=== PATIENT | female | born 1990 | race Caucasian/White ===

== ENCOUNTER → 2018-09-08 | Outpatient (CLI) | payer MEDICAID ==
[2018-09-08 10:58] LABS: Basophils % (A) 0 %; Eosinophils # (A) 0.1 k/uL (0-0.7); Eosinophils % (A) 1 %; HCT 45.2 % (34.0-46.0); HGB 14.9 gm/dL (11.4-16.0); Lymphocytes # (A) 2.1 k/uL (1.0-4.8); Lymphocytes % (A) 24 %; MCH 31.6 pg (25.0-35.0); MCHC 32.9 g/dL (31.0-37.0); MCV 96.1 fL (80.0-100.0); Mean Platelet Volume 6.9; Monocytes # (A) 0.4 k/uL (0-1.0); Monocytes % (A) 4 %; Neutrophils % (A) 69 %; Platelet Count 275 k/uL (150-450); RBC 4.71 m/uL (3.80-5.40); RDW 12.9 % (11.5-15.5); WBC 8.7 k/uL (3.8-10.6)
[2018-09-08 17:47] LABS: Albumin 4.7 g/dL (3.80-4.90); Albumin/Globulin Ratio 2.04 (1.20-2.10); Anion Gap 3.1 mmol/L (4.00-12.00); Calcium 9.5 mg/dL (8.7-10.3); Carbon Dioxide 26.9 mmol/L (21.6-31.8); Globulin 2.3 g/dL (2.1-3.7); LDL Cholesterol,Calculated 51.6 mg/dL (0.0-131.0); Potassium 4.8 mmol/L (3.5-5.5); Total Bilirubin 1.3 mg/dL (0.3-1.2); VLDL Calculation 10.4 mg/dL (5.00-40.00)
[2018-09-08 17:55] LABS: T4, Free (Free Thyroxine) 1.3 ng/dL (0.80-1.80)
== END | disposition home or self-care (01) ==
LOC: LABWHC1 09:50
PROVIDERS: ATTEND Family Medicine
DX: Z00.00 Encounter for general adult medical examination without abnormal findings (principal)
CPT/HCPCS: 36415; 80053; 80061; 84439; 84443; 85025

== ENCOUNTER → 2021-04-27 | Outpatient (CLI) | payer MEDICAID ==
--- NOTE | 2021-04-27 08:17 | US ---
EXAMINATION TYPE: US mass soft tissue chest/back DATE OF EXAM: 04/27/2021 COMPARISON: NONE CLINICAL HISTORY: M99.84 Sacral Mass. palpable lump felt just superior to gluteal cleft this past yea r, no skin changes, no pain, no injury Soft tissue scan just superior to gluteal cleft produces no focal abnormality, no fluid collection or masses seen. Possible lipoma versus other etiology. IMPRESSION: No definite sonographic abnormalities seen superior to the gluteal cleft. Clinical follow-up is recom mended.
== END | disposition home or self-care (01) ==
LOC: RADUSWWP 07:06
PROVIDERS: ATTEND Family Medicine
DX: M99.84 Other biomechanical lesions of sacral region (principal)

== ENCOUNTER → 2022-12-03 | Outpatient (CLI) | payer MEDICAID ==
--- NOTE | 2022-12-03 07:45 | MM ---
Reason for Exam: Clinical finding. Baseline mammogram. Patient History: Menarche at age 16. Hormonal Contraceptives, from age 16 until age 30. Last menstrual period: 11/25/2022 Prior Study Comparison: Patient's first Mammogram. No prior studies available for comparison. Tissue Density: The breast tissue is extremely dense which could obscure a lesion on mammography. Findings: Analyzed By CAD. Occasional loosely grouped and scattered benign-appearing tiny round calcification is identified. No obvious mass or distortion. Overall Assessment: Incomplete: need additional imaging evaluation, BI-RAD 0 Management: Diagnostic Breast Ultrasound of both breasts. Bilateral ultrasound due to symptoms and extreme dense breasts. Electronically signed and approved by: Parveen Suero M.D.
--- NOTE | 2022-12-03 12:50 | USB ---
Patient History: Menarche at age 16. Hormonal Contraceptives, from age 16 until age 30. Findings: The upper outer quadrant of both breasts, the axilla of both breasts and the retroareolar of the right breast were scanned. A complete US of all four quadrants of the breast and retro-areolar region were reviewed. At 11:00 position 1 cm distance from nipple there is a round 6 x 5 x 7 mm anechoic avascular lesion favor benign thin-walled cyst. Possible linear extension on 2 images. At the site of Palpable left axillary region there is isoechoic oval ill-defined area favoring focal prominent breast tissue. Overall Assessment: Probably benign, BI-RAD 3 Management: Diagnostic Breast Ultrasound of both breasts in 6 months. Short-term ultrasound follow-up in 6 months time. Advise surgical consultation to unilateral breast discharge. Results were given to the patient verbally at the time of exam. Electronically signed and approved by: Parveen Suero M.D.
== END | disposition home or self-care (01) ==
LOC: RADMAMWWP 07:07
PROVIDERS: ATTEND Obstetrics & Gynecology
DX: N63.0 Unspecified lump in unspecified breast (principal); N64.52 Nipple discharge; N64.4 Mastodynia
CPT/HCPCS: 77062; 77066

== ENCOUNTER 2023-03-01 20:50 | Emergency (ER) | payer MEDICAID ==
[2023-03-01 21:04] VITALS: BP 122/81; PULSE 79; RESP 20; TEMP 98
--- NOTE | 2023-03-01 22:02 | ED ---
General Adult HPI - General Chief complaint: Needlestick/Exposure Stated complaint: work exposure Time Seen by Provider: 03/01/23 21:20 Source: patient, RN notes reviewed Mode of arrival: ambulatory Limitations: no limitations - History of Present Illness Initial comments: 33-year-old female presents to the emergency department for chief complaint of occupational exposure. 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 States that this happened around 1630. SHe states that she had contacts in at the time of the splash. She states that she did a saline flush in both eye then removed her contacts and did another flush in each eye. Unknown hep B, C, HIV status in the source. - Related Data Home Medications Medication Instructions Recorded Confirmed No Known Home Medications 05/02/16 05/02/16 Allergies Allergy/AdvReac Type Severity Reaction Status Date / Time No Known Allergies Allergy Verified 03/01/23 21:04 Review of Systems ROS Statement: Those systems with pertinent positive or pertinent negative responses have been documented in the HPI. ROS Other: All systems not noted in ROS Statement are negative. Past Medical History Past Medical History: No Reported History History of Any Multi-Drug Resistant Organisms: None Reported Past Surgical History: No Surgical Hx Reported Past Psychological History: No Psychological Hx Reported Smoking Status: Never smoker Past Alcohol Use History: Occasional Past Drug Use History: None Reported General Exam Limitations: no limitations General appearance: alert, in no apparent distress Head exam: Present: atraumatic, normocephalic, normal inspection Eye exam: Present: normal appearance, PERRL, EOMI. Absent: scleral icterus, conjunctival injection, periorbital swelling ENT exam: Present: normal exam, mucous membranes moist Respiratory exam: Present: normal lung sounds bilaterally. Absent: respiratory distress, wheezes, rales, rhonchi, stridor Cardiovascular Exam: Present: regular rate, normal rhythm, normal heart sounds. Absent: systolic murmur, diastolic murmur, rubs, gallop, clicks Neurological exam: Present: alert, oriented X3 Psychiatric exam: Present: normal affect, normal mood Skin exam: Present: warm, dry, intact, normal color. Absent: rash Course Vital Signs 03/01/23 21:00 Temperature 98.0 F Pulse Rate 79 Respiratory 20 Rate Blood Pressure 122/81 O2 Sat by Pulse 100 Oximetry Medical Decision Making - Medical Decision Making Was pt. sent in by a medical professional or institution (JUANCHO Aguirre, [employer] WORK[employer]PERVISOR, urgent care, hospital, or longterm...) When possible be specific @ -No Did you speak to anyone other than the patient for history (EMS, parent, family, police, friend...)? What history was obtained from this source @ -No Did you review nursing and triage notes (agree or disagree)? Why? @ -I reviewed and agree with nursing and triage notes Were old charts reviewed (outside hosp., previous admission, EMS record, old EKG, old radiological studies, urgent care reports/EKG's, longterm records)? Report findings @ -No old charts were reviewed Differential Diagnosis (chest pain, altered mental status, abdominal pain women, abdominal pain men, vaginal bleeding, weakness, fever, dyspnea, syncope, headache, dizziness, GI bleed, back pain, seizure, CVA, palpatations, mental health, musculoskeletal)? @ -not applicable EKG interpreted by me (3pts min.). @ -None X-rays interpreted by me (1pt min.). @ -None done CT interpreted by me (1pt min.). @ -None done U/S interpreted by me (1pt. min.). @ -None done What testing was considered but not performed or refused? (CT, X-rays, U/S, labs)? Why? @ -None What meds were considered but not given or refused? Why? @ -None Did you discuss the management of the patient with other professionals (professionals i.e. JUANCHO Aguirre, SHORE WORKING SUPERVISOR, lab, RT, psych nurse, social service liaison, microfilm clerk, teacher, environmental protection officer, pillowcase sewer)? Give summary @ -No Was smoking cessation discussed for >3mins.? @ -No Was critical care preformed (if so, how long)? @ -No Were there social determinants of health that impacted care today? How? (Homelessness, low income, unemployed, alcoholism, drug addiction, transport ation, low edu. Level, literacy, decrease access to med. care, penitentiary, rehab)? @ -No Was there de-escalation of care discussed even if they declined (Discuss DNR or withdrawal of care, Hospice)? DNR status @ -No What co-morbidities impacted this encounter? (DM, HTN, Smoking, COPD, CAD, Cancer, CVA, ARF, Chemo, Hep., AIDS, mental health diagnosis, sleep apnea, morbid obesity)? @ -None Was patient admitted / discharged? Hospital course, mention meds given and route, prescriptions, significant lab abnormalities, going to OR and other pertinent info. @ -Discharge. Patient presented to the emergency department following an occupational exposure. She was splashed by oral secretions in bilateral eyes. She states that this happened around 1630. She stated two saline rinses in both eyes. Blood was obtained from patient for hep B, hep C, HIV testing. Patient c onsented for HIV testing. 500 mL of saline used in each eye to rinse with the Krit lens. Appropriate paperwork for occupation exposure was filled out. Case discussed with Dr. Avila. Patient discharged in stable condition. Undiagnosed new problem with uncertain prognosis? @ -No Drug Therapy requiring intensive monitoring for toxicity (Heparin, Nitro, Insulin, Cardizem)? @ -No Were any procedures done? @ -No Diagnosis/symptom? @ -Occupational exposure to bodily fluids Acute, or Chronic, or Acute on Chronic? @ -Acute Uncomplicated (without systemic symptoms) or Complicated (systemic symptoms)? @ -Uncomplicated Side effects of treatment? @ -No Exacerbation, Progression, or Severe Exacerbation? @ -No Poses a threat to life or bodily function? How? (Chest pain, [place], [place], pneumonia, PE, COPD, DKA, ARF, appy, cholecystitis, CVA, Diverticulitis, Homicidal, Suicidal, threat to staff... and all critical care pts) @ -No Disposition Clinical Impression: Occupational exposure in workplace Disposition: HOME SELF-CARE Condition: Stable Is patient prescribed a controlled substance at d/c from ED?: No Referrals: Sonia Larsen MD [Primary Care Provider] - 1-2 days Time of Disposition: 23:38
== END 2023-03-01 23:45 | disposition home or self-care (01) ==
LOC: EC 20:50
DX: H57.9 Unspecified disorder of eye and adnexa (principal); W46.0XXA Contact with hypodermic needle, initial encounter
CPT/HCPCS: 99283

== ENCOUNTER → 2023-06-06 | Outpatient (CLI) | payer MEDICAID ==
[2023-06-07 03:28] LABS: ALT 17 U/L (8-44); AST 22 U/L (13-35); Albumin 4.9 d/dL (3.8-4.9); Albumin/Globulin Ratio 1.96 Ratio (1.60-3.17); Alkaline Phosphatase 65 U/L (41-126); Blood Urea Nitrogen 12.6 mg/dL (9.0-27.0); Calcium 9.8 mg/dL (8.7-10.3); Chloride 103 mmol/L (96-109); Globulin 2.5 d/dL (1.6-3.3); Glucose 87 mg/dL (70-110); Potassium 4.2 mmol/L (3.5-5.5); Sodium 139 mmol/L (135-145); Total Bilirubin 0.4 mg/dL (0.3-1.2); Total Protein 7.4 d/dL (6.2-8.2)
[2023-06-07 03:31] LABS: Basophils # (A) 0.05 X 10*3/uL (0.00-0.10); Basophils % (A) 0.6 %; Eosinophils # (A) 0.05 X 10*3/uL (0.04-0.35); Eosinophils % (A) 0.6 %; HCT 41.9 % (37.2-46.3); HGB 13.8 d/dL (12.0-15.0); Lymphocytes # (A) 3.26 X 10*3/uL (0.90-5.00); Lymphocytes % (A) 39.1 %; MCH 30.7 pg (27.0-32.0); MCHC 32.9 d/dL (32.0-37.0); MCV 93.3 FL (80.0-97.0); Mean Platelet Volume 11.1 FL (9.5-12.2); Monocytes % (A) 8.4 %; NRBC Per 100 WBC 0 X 10*3/uL (0.00-0.01); Neutrophils # (A) 4.25 X 10*3/uL (1.80-7.70); Neutrophils % (A) 51.1 %; Platelet Count 281 X 10*3/uL (140-440); RBC 4.49 X 10*6/uL (4.10-5.20); RDW 13.2 % (11.5-14.5); WBC 8.33 X 10*3/uL (4.50-10.00)
== END | disposition home or self-care (01) ==
LOC: LABWHC1 06-05 11:44
PROVIDERS: ATTEND Family Medicine
DX: Z00.00 Encounter for general adult medical examination without abnormal findings (principal)
CPT/HCPCS: 36415; 80053; 84443; 85025

== ENCOUNTER → 2025-01-20 | Outpatient (CLI) | payer MEDICAID ==
--- NOTE | 2025-01-20 10:14 | USB ---
Reason for Exam: Follow-up at short interval from prior study. Patient History: Menarche at age 16. Hormonal Contraceptives, from age 16 until age 30. Technique: Method: Whole Breast Handheld. Prior Study Comparison: 12/03/2022 Bilateral MG 3D diag mammo w/cad [facility], [facility]. Findings: The whole breast of both breasts, the axilla of both breasts and the retroareolar of both breasts were scanned. Electronically signed and approved by: Vitaly Garcia M.D. Radiologis
== END | disposition home or self-care (01) ==
LOC: RADUSWWP 06:58
PROVIDERS: ATTEND Obstetrics & Gynecology
DX: N64.52 Nipple discharge (principal)